=== PATIENT | male | born 1965 | race Caucasian/White ===

== ENCOUNTER 2025-05-13 07:39 | Outpatient (CLI) | payer OTHER, SELFPAY ==
--- NOTE | ~2025-05-13 | PE_ITS ---
EXAMINATION: PET_PETPSMAST_PT DATE: 05/13/2025 10:05 INDICATION: Prostate cancer TECHNIQUE: 4.875 mCi of Illucix Ga-68([id number]) was administered i.v. Low dose computed tomography (CT) images were acquired from the base of the brain to the base of the brain to the proximal thighs for attenuation correction and anatomic localization. Positron emission tomography (PET) images were acquired in the same distribution beginning 62 minutes after injection. Images including fused PET/CT images were reconstructed in axial, coronal, and sagittal planes. Automated exposure control technique was employed. The dose-length product was 1288.51mGy-cm. COMPARISON: None FINDINGS: Head/neck: Typical pattern of symmetric physiologic increased activity in the lacrimal, parotid and submandibular glands as well as along the mucosa of the nasal and oral cavities, pharynx and hypopharynx. There is some rotational motion artifact which occurs at level of the parotid gland resulting in duplicated and displaced less intense regions of parotid activity. No pathologically enlarged cervical lymphadenopathy or suspicious foci of increased uptake in the visualized head or neck. Chest: Mild discoid atelectasis at the lingula. No suspicious pulmonary nodules, pneumonia, pulmonary edema or pleural effusion. Heart size is normal. No pericardial effusion. Thoracic aorta is normal in caliber. Mild bilateral gynecomastia. No pathologically enlarged or PSMA avid thoracic lymphadenopathy. There is mild uptake with maximal SUV of 4.2 associated with ill-defined region of soft tissue density in the subcutaneous fat overlying the medial margin of the right scapula. Abdomen/pelvis/proximal thighs: Physiologic renal accumulation and excretion of activity in the kidneys, bladder and along portions of ureters. Photopenic defect associated with an 8.7 cm left renal cyst. Prostatomegaly measuring 4.6 x 3.8 cm. There is a small PSA may avid lesion at the right inferior prostate with maximal SUV of 9.2. Normal degree and slightly heterogenous pattern of increased uptake throughout the liver and spleen without radiologic correlate or dominant PSMA avid lesion. The gallbladder, pancreas and bilateral adrenal glands are normal. Moderate uptake scattered throughout the bowels with typical duodenal and proximal jejunal predominance and without radiologic correlate, also likely physiologic. No other abnormal foci of increased uptake or pathologically enlarged lymphadenopathy in the abdomen, pelvis or proximal thighs. Musculoskeletal: Mild cervical and thoracic and moderate to severe lumbar spondylosis. No suspicious lytic, blastic or abnormally PSA may avid bone lesions. IMPRESSION: 1. Small focus of increased uptake at the right inferior aspect of the enlarged prostate consistent with primary prostate cancer. 2. Nonspecific mild uptake associated with small ill-defined region of soft tissue density in the subcutaneous fat overlying the medial margin of the right scapula. The activity is relatively low and this be a highly atypical site for metastatic disease in this more likely inflammatory in etiology. Correlate clinically for signs of cellulitis or trauma at this location. No other lesions suspicious for metastatic disease. Reviewed, dictated and finalized at location A. IMPRESSION: 1. Small focus of increased uptake at the right inferior aspect of the enlarged prostate consistent with primary prostate cancer. 2. Nonspecific mild uptake associated with small ill-defined region of soft tis leann density in the subcutaneous fat overlying the medial margin of the right sc apula. The activity is relatively low and this be a highly atypical site for me tastatic disease in this more likely inflammatory in etiology. Correlate clinic ally for signs of cellulitis or trauma at this location. No other lesions suspi cious for metastatic disease.
--- OUTSIDE RECORDS SUMMARY | 2025-05-13 07:43 | XMS_ITS | Encounter Summary ---
Author Organization [facility] Healthcare Address [address] [place] [address] Care Team Providers Care Technical Business Analyst Name Role Phone No, Physician Primary Care Provider [phone] Reason for Referral * Diagnostic Imaging (Routine) - Closed Specialty Diagnoses / Procedures Referred By Contac t Referred To Contact Radiology Diagnoses Hematuria, unspecified type Procedures CT Urogram W Contrast No 3D CT ABDOMEN PELVIS W WO CONTRAST Luis James MD Phone: tel: fax: [address] [phone] Referral ID Status Reason Start Date Expiration Date Visits Re quested Visits Authorized [id number] Closed 01/05/2025 02/04/2026 1 1 Encounter Details Date Type Department Care Team (Late st Contact Info) Description 01/05/2025 Community Orders [facility] [place] [id number] [address] Hematuria, unspecified type (Primary Dx) Social History Tobacco Use Types Packs/Day Years Used Date Smoking Tobacco: Never Assessed Sex and Gender Information Value Date Recorded Sex Assigned at Not on file 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 Pt reports he also has microscopic hematuria. TECHNIQUE: Precontrast images of the abdomen. Abdomen and pelvis images with intravenous and without oral contrast using helical scanning technique with dynamic intravenous contrast injection. Corticomedullary, nephrographic, excretory phase images were acquired. Reconstructed coronal and sagittal MPR images reviewed. All images stored on PACS. Automated exposure control was used as a dose optimization technique for this examination. CONTRAST TYPE/DOSE: 100mL of IOVERSOL 350 MG IODINE/ML INTRAVENOUS SYRINGE injected via intravenous COMPARISON: None FINDINGS: URINARY TRACT: KIDNEYS: 8.4 cm cyst along the posterior aspect of the upper pole of the left kidney. No calculi. Normal renal collecting systems. URETERS AND BLADDER: No hydroureter. No masses or mucosal abnormalities. ABDOMEN/PELVIS: LOWER CHEST: No significant pulmonary abnormalities. No effusion. LIVER: Normal size. No identified cystic or solid masses. GALLBLADDER: No stones identified. No wall thickening or inflammatory changes. BILE DUCTS: No intrahepatic or extrahepatic ductal dilatation. SPLEEN: Normal size. No focal lesions. PANCREAS: No identified cystic or solid masses. No significant calcifications. No adjacent inflammation or peripancreatic fluid collections. Pancreatic duct not dilated. ADRENALS: Normal. GI: No dilated bowel loops. No obvious wall thickening. Normal appendix. Scattered diverticular disease without diverticulitis. PERITONEUM: No ascites or free air. RETROPERITONEUM: No mass or adenopathy. REPRODUCTIVE: No significant abnormality. VASCULATURE: No abdominal aortic aneurysm. MUSCULOSKELETAL: No acute findings. OTHER: Bilateral inguinal hernias containing only fat, right greater than left. Small periumbilical hernia containing only fat. IMPRESSION: 1. 8.4 cm cyst along the posterior aspect of the upper pole the left kidney. Otherwise negative CT urogram. 2. Diverticulosis. No evidence of diverticulitis. 3. Bilateral inguinal hernias containing only fat, right greater than left. Small periumbilical hernia containing only fat. THIS IS AN ELECTRONICALLY VERIFIED FINAL REPORT 02/25/2025 1:37 PM - Electronically signed by Luis M Garcia M.D. KT: KT Report ID: [id number] Reading Location: [id number] Procedure Note Luis M Garcia MD - 02/25/2025 EXAM DESCRIPTION: CT UROGRAM W CONTRAST NO 3D REASON FOR STUDY: Hematuria Abnormal MRI of prostate done 02/03/25. Pt reports he also has microscopic hematuria. TECHNIQUE: Precontrast images of the abdomen. Abdomen and pelvis imageswith intravenous and without oral contrast using helical scanning techniquewith dynamic intravenous contrast injection. Corticomedullary, nephrographic, excretory phase images were acquired. Reconstructed coronal and sagittalMPR images reviewed. All images stored on PACS. Automated exposure control was used as a dose optimization technique forthis examination. CONTRAST TYPE/DOSE: 100mL of IOVERSOL 350 MG IODINE/ML INTRAVENOUSSYRINGE injected via intravenous COMPARISON: None FINDINGS: URINARY TRACT: KIDNEYS: 8.4 cm cyst along the posterior aspect of the upper pole of the left kidney. No calculi. Normal renal collecting systems. URETERS AND BLADDER: No hydroureter. No masses or mucosal abnormalities. ABDOMEN/PELVIS: LOWER CHEST: No significant pulmonary abnormalities. No effusion. LIVER: Normal size. No identified cystic or solid masses. GALLBLADDER: No stones identified. No wall thickening or inflammatory changes. BILE DUCTS: No intrahepatic or extrahepatic ductal dilatation. SPLEEN: Normal size. No focal lesions. PANCREAS: No identified cystic or solid masses. No significant calcifications. No adjacent inflammation or peripancreatic fluidcollections. Pancreatic duct not dilated. ADRENALS: Normal. GI: No dilated bowel loops. No obvious wall thickening. Normal appendix. Scattered diverticular disease without diverticulitis. PERITONEUM: No ascites or free air. RETROPERITONEUM: No mass or adenopathy. REPRODUCTIVE: No significant abnormality. VASCULATURE: No abdominal aortic aneurysm. MUSCULOSKELETAL: No acute findings. OTHER: Bilateral inguinal hernias containing only fat, right greaterthan left. Small periumbilical hernia containing only fat. IMPRESSION: 1. 8.4 cm cyst along the posterior aspect of the upper pole the leftkidney. Otherwise negative CT urogram. 2. Diverticulosis. No evidence of diverticulitis. 3. Bilateral inguinal hernias containing only fat, right greater thanleft. Small periumbilical hernia containing only fat. THIS IS AN ELECTRONICALLY VERIFIED FINAL REPORT 02/25/2025 1:37 PM - Electronically signed by Luis M Garcia M.D. KT: DENG Report ID: [id number] Reading Location: [place] [address] [facility] Tariq James MD IMG CT PROCEDURES Final Result documented in this encounter Visit Diagnoses Diagnosis Hematuria, unspecified type- Primary Hematuria, unspecified type documented in this encounter Care Teams Technical Business Analyst Relationship Specialty Start Date End Date No, Physician PCP - General 01/15/25 documented as of this encounter
--- OUTSIDE RECORDS SUMMARY | 2025-05-13 07:43 | XMS_ITS | Clinical Summary ---
Author Organization [facility] Address [address] [place] [id number] Care Team Providers Care Marine Electronics Technician Name Role Phone No, Physician Primary Care Provider [phone] Allergies No known active allergies Encounters Date Type Department Care Team Description 02/16/2025 1:55 PM CDT - 02/16/2025 11:59 PM CDT Hospital Encounter [address] [address] Hematuria, unspecified type Discharge Disposition: Discharge to home or self care 02/15/2025 Telephone [facility] [address] [place] [id number] Edelmira Carey from Last 3 Months Social History Tobacco Use Types Packs/Day Years Used Date Smoking Tobacco: Never Assessed Sex and Gender Information Value Date Recorded Sex Assigned at Not on file 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 Gender Identity Not on file Sexual Orientation Not on file Plan of Treatment Health Maintenance Due Date Last Done Comments Colon Cancer Screening-Colonoscopy 1965 Depression Screening 1965 Hepatitis C Screening 1965 Prostate Cancer Screening-PSA 1965 DTaP/Tdap/Td Vaccine (1 - Tdap) 1976 Hepatitis B Screening 1983 Regular Well Visit/Exam 18-64 1983 Zoster Vaccine (1 of 2) 2015 Covid-19 Vaccine (2024-2 6 season) 2025 08/27/2021, 12/17/2020, 11/24/2020 Influenza Vaccine (#1) 2025 Pneumococcal vaccine <65 Aged Out No longer eligible based on patient's age to complete this topic Procedures Procedure Name Priority Date/Time Associated Diagnosis Comments CT UROGRAM Schedule Routine, Read Routine (OP Routine) 02/16/2025 3:40 PM CDT Hematuria, unspecified type from Last 3 Months Results * CT Urogram W Contrast No [...] M Garcia M.D. KT: KT Report ID: [id number] Reading Location: [id number] Procedure Note Luis M Garcia MD - [...] M Garcia M.D. KT: DENG Report ID: [id number] Reading Location: [place] [address] [facility] Tariq James MD IMG CT PROCEDURES Final Result from Last 3 Months Insurance [facility] Address: [place] [address] [facility] [employer] [facility] [employer] Address: [address] [place] [id number] Care Teams Marine Electronics Technician Relationship Specialty Start Date End Date No, Physician PCP - General 01/15/25
--- OUTSIDE RECORDS SUMMARY | 2025-05-13 07:43 | XMS_ITS | Encounter Summary ---
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
== END 2025-05-13 07:40 | disposition home or self-care (01) ==
PROVIDERS: Visit Provider Urology
DX: C61 Malignant neoplasm of prostate (principal)
CPT/HCPCS: 78815; A9596